=== PATIENT | male | born 1980 | race Caucasian/White ===

== ENCOUNTER 2019-12-17 16:36 | Inpatient (IN) | payer OTHER ==
--- NOTE | 2019-12-17 18:58 | BHS.RME ---
Substance Use & Tx History - Last Treatment Where was last treatment: Detox COWS - Scale Resting Pulse: 2= [place] 101-120 Sweatin=Flushed/Facial Moisture Restless Observation: 0= Sits Still Pupil Size: 1= Pupils >than Normal Bone or Joint Aches: 2= Severe Diffuse Aches Runny Nose/ Eye Tearin= Runny Nose/Eyes GI Upset > 30mins: 2= Nausea/Diarrhea (nausea, no diarrhea) Tremor Observation: 2= Slight Tremor Visible Yawning Observation: 1= 1-2x During Session Anxiety or Irritability: 2=Irritable/Anxious Goose Flesh Skin: 0=Smooth Skin COWS Score: 16 CIWA Nausea/Vomitin Muscle Tremors: 3 Anxiety: 4-Mod. Anxious/Guarded Agitation: 4-Moderately Restless Paroxysmal Sweats: 2 Orientation: 0-Oriented Tacttile Disturbances: 0-None Auditory Disturbances: 0-None Visual Disturbances: 0-None Headache: 3-Moderate CIWA-Ar Total Score: 18
[2019-12-17 19:31] VITALS: BMI 18.1
--- NOTE | 2019-12-17 20:26 | HP ---
COWS - Scale Resting Pulse: 2= [place] 101-120 Sweatin= Chills/Flushing Restless Observation: 1= Difficult to Sit Still Pupil Size: 0= Normal to Room Light Bone or Joint Aches: 2= Severe Diffuse Aches Runny Nose/ Eye Tearin= Runny Nose/Eyes GI Upset > 30mins: 2= Nausea/Diarrhea (nausea, no diarrhea) Tremor Observation: 2= Slight Tremor Visible Yawning Observation: 0= None Anxiety or Irritability: 2=Irritable/Anxious Goose Flesh Skin: 0=Smooth Skin COWS Score: 14 CIWA Score Nausea/Vomitin Muscle Tremors: 3 Anxiety: 3 Agitation: 3 Paroxysmal Sweats: 2 Orientation: 0-Oriented Tacttile Disturbances: 0-None Auditory Disturbances: 0-None Visual Disturbances: 0-None Headache: 0-None Present CIWA-Ar Total Score: 13 - Admission Criteria OASAS Guidelines: Admission for Medically Managed Detox: Requires at least one of the followin. CIWA greater than 12 2. Seizures within the past 24 hours 3. Delirium tremens within the past 24 hours 4. Hallucinations within the past 24 hours 5. Acute intervention needed for co occurring medical disorder 6. Acute intervention needed for co occurring psychiatric disorder 7. Severe withdrawal that cannot be handled at a lower level of care (continued vomiting, continued diarrhea, abnormal vital signs) requiring intravenous medication and/or fluids 8. Admitting History and Physical - Smoking History Smoking history: Current every day smoker Have you smoked in the past 12 months: Yes Aproximately how many cigarettes per day: 20 Admission ROS [facility] Allergies/Adverse Reactions: Allergies Allergy/AdvReac Type Severity Reaction Status Date / Time No Known Allergies Allergy Verified 12/17/19 19:25 History of Present Illness: pt here requesting detox from heroin and benzo use , reports xanax 3-4 /day since 1 yr ago , etoh 4 x 24 elida/day , heroin 3 bundles/day IV use in [facility] , OD " a long time ago " , denies abscess cocaine : " not that much " via inhalation amphetamine - denies fentanyl - denies methadone - denies recent detox , claims most recent detox 2 years ago @ [facility] tobacco : 1 ppd denies other illicits pmhx : denies PSHX : denies PSych : denies Exam Limitations: Clinical Condition - Review of Systems Constitutional: No Symptoms Reported, Unintentional Wgt. Loss EENT: reports: See HPI, Nose Congestion Respiratory: reports: No Symptoms reported Cardiac: reports: No Symptoms Reported GI: reports: See HPI, Nausea, Poor Appetite, Abdominal cramping : reports: No Symptoms Reported Musculoskeletal: reports: Muscle Pain Integumentary: reports: See HPI Neuro: reports: See HPI Endocrine: reports: No Symptoms Reported Hematology: reports: No Symptoms Reported Psychiatric: reports: Orientated x3, Agitated, Anxious Patient History - Patient Medical History Hx Asthma: No Hx Cardiac Disorders: No Hx Diabetes: No Hx Gastrointestinal Disorders: No Hx Sexually Transmitted Disorders: No Hx Renal Disease (ESRD): No - Patient Surgical History Past Surgical History: No - PPD History Documented Results: Negative w/o proof - Smoking Cessation Smoking history: Current every day smoker Have you smoked in the past 12 months: Yes Aproximately how many cigarettes per day: 20 Hx Chewing Tobacco Use: No Initiated information on smoking cessation: Yes 'Breaking Loose' booklet given: 12/17/19 - Substances abused Alcohol Substance route: Oral Frequency: Daily Amount used: 4 LOkOS, 1 PINT OF VODKA not daily Age of first use: 15 Date of last use: 12/17/19 Heroin Substance route: Injection Frequency: Daily Amount used: 3 BUNDLES Age of first use: 15 Date of last use: 12/17/19 Alprazolam (Xanax) Substance route: Oral Frequency: Daily Amount used: 3 STICKS 2 MG EACH Age of first use: 39 Date of last use: 12/17/19 Admission Physical Exam S - Vital Signs Vital Signs: Vital Signs - 24 hr 12/17/19 19:26 Temperature 98.7 F Pulse Rate 105 H Respiratory 18 Rate Blood Pressure 147/88 - Physical General Appearance: Yes: Disheveled, Moderate Distress, Anxious HEENTM: Yes: EOMI, Hearing grossly Normal, Normocephalic, Normal Voice, Nasal Congestion Respiratory: Yes: Chest Non-Tender, Lungs Clear, Normal Breath Sounds, No Respiratory Distress, No Accessory Muscle Use Neck: Yes: No masses,lesions,Nodules, Trachea in good position Cardiology: Yes: Regular Rhythm, Regular Rate, S1, S2 Abdominal: Yes: Normal Bowel Sounds, Non Tender, Soft Back: Yes: Normal Inspection Musculoskeletal: Yes: Gait Steady Extremities: Yes: Normal Capillary Refill, Normal Inspection, Normal Range of Motion, Non-Tender Neurological: Yes: Alert, Motor Strength 5/5, Normal Mood/Affect Integumentary: Yes: Warm, Track [place] - Diagnostic (1) Opioid dependence Current Visit: Yes Status: Chronic Qualifiers: Substance use status: uncomplicated Qualified Code(s): F11.20 - Opioid dependence, uncomplicated (2) Sedative, hypnotic or anxiolytic abuse Current Visit: Yes Status: Chronic (3) Cocaine abuse Current Visit: Yes Status: Chronic (4) Nicotine dependence Current Visit: Yes Status: Chronic Qualifiers: Nicotine product type: cigarettes (5) Alcohol dependence Current Visit: Yes Status: Chronic Qualifiers: Substance use status: uncomplicated Qualified Code(s): F10.20 - Alcohol dependence, uncomplicated Breathalyzer - Breathalyzer Breathalyzer: 0 Urine Drug Screen - Test Device Lot number: [id number] Expiration date: 09/21/21 - Control Is test valid?: Yes - Results Drug screen NEGATIVE: No Urine drug screen results: IVAN-Cocaine, MET-Methamphetamine, AMP-Amphetamines, FEN-Fentanyl, MOP-Opiates, MTD-Methadone, BZO-Benzodiazepines Inpatient Rehab Admission - Rehab Decision to Admit Inpatient rehab admission?: No
[2019-12-17] MEDS ORDERED: MAGNESIUM HYDROX 2400MG/30ML ORAL SUSPENSION 30 ML CUP PO PRN (20:34)
[2019-12-17] MEDS ORDERED: MENTHOL/PHENOL 1 EACH UD MM PRN (20:34)
[2019-12-17] MEDS ORDERED: hydrOXYzine PAMOATE 25 MG CAPSULE (FP) PO PRN (20:34)
[2019-12-17] MEDS ORDERED: MAGNESIUM CITRATE 300 ML BOTTLE PO PRN (20:34)
[2019-12-17] MEDS ORDERED: ACETAMINOPHEN 325 MG TABLET (FP) PO PRN ×2 (20:34)
[2019-12-17] MEDS ORDERED: MAG HYDROX/AL HYDROX/SIMETH 30 ML UNIT-DOSE CUP PO PRN (20:34)
[2019-12-17] MEDS ORDERED: BISMUTH SUBSALICYLATE 524 MG/30 ML UD PO PRN (20:34)
[2019-12-17] MEDS ORDERED: METHADONE HCL 10 MG TABLET (FOR DETOX USE ONLY) PO ONE (21:45)
[2019-12-17] MEDS ORDERED: MELATONIN 5 MG TABLETS PO PRN (22:00)
[2019-12-17] MEDS: diazePAM 5 MG TABLET PO SCH (22:17)
[2019-12-17] MEDS: THIAMINE HCL 100 MG TABLET (FP) PO SCH (22:19)
[2019-12-18] MEDS: diazePAM 5 MG TABLET PO SCH ×3 (05:27→22:11)
--- NOTE | 2019-12-18 08:20 | CONSULT ---
[facility] Psychiatric Consult - Data Date of interview: 12/18/19 Admission source: [facility] Identifying data: Mr Ayala is a 39 years old single male, unemployed receiving public assistance, homeless seeking detox treatment for alcohol, opioid, cocaine and benzodiazepine Substance Abuse History: Reports history of alcohol, heroin, cocaine and xanax use. Refer to addiction counselor's summary for further information Medical History: Unremarkable Psychiatric History: Reports that his only psychiatric treatment occured 7 years ago when he saw a private psychiatrist in [facility] due to depression. He said that he was prescribed Lexapro which he took for 1.5 year. He claims that medication was not having an effect anymore so he stopped taking it. Denies previous psychiatric hospitalization or suicidal attempt. At present, denies experiencing depressive symptoms, S/H ideations. However, reports feeling mildly anxious and sleeping poorly. 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 winder that Melatonin has no effect on him and requests stronger medication Physical/Sexual Abuse/Trauma History: Denies history of abuse as a child or DV relationship as an adult Mental Status Exam - Mental Status Exam Alert and Oriented to: Place, Person Cognitive Function: Fair Patient Appearance: Disheveled Mood: Anxious Affect: Appropriate Patient Behavior: Cooperative Speech Pattern: Clear Voice Loudness: Normal Thought Process: Intact, Goal Oriented Thought Disorder: Not Present Hallucinations: Denies Suicidal Ideation: Denies Homicidal Ideation: Denies Insight/Judgement: Poor Muscle strength/Tone: Normal Gait/Station: Normal Psychiatric Findings - Problem List ([place] 1, 2,3) (1) Depressive disorder Current Visit: Yes Status: Chronic (2) MDD (major depressive disorder) Current Visit: Yes Status: Ruled-out (3) Substance induced mood disorder Current Visit: Yes Status: Ruled-out (4) Substance-induced anxiety disorder Current Visit: Yes Status: Acute (5) Substance-induced sleep disorder Current Visit: Yes Status: Acute (6) Uncomplicated alcohol dependence Current Visit: Yes Status: Acute (7) Uncomplicated opioid dependence Current Visit: Yes Status: Acute (8) Sedative, hypnotic or anxiolytic dependence, uncomplicated Current Visit: Yes Status: Acute (9) Cocaine abuse Current Visit: Yes Status: Acute (10) Nicotine dependence Current Visit: Yes Status: Chronic Qualifiers: Nicotine product type: cigarettes - Initial Treatment Plan Initial Treatment Plan: 1) Start Belsomra 10 mg po HS prn for insomnia. 2) Continue inpatient detoxification
[2019-12-18] MEDS ORDERED: METHADONE HCL 5 MG TABLET (FOR DETOX USE ONLY) ONE (09:17)
[2019-12-18] MEDS ORDERED: METHADONE HCL 10 MG TABLET (FOR DETOX USE ONLY) ONE (09:17)
[2019-12-18] MEDS ORDERED: METHADONE (DETOX) 20 MG, METHADONE (DETOX) 5 MG PO ONE (10:00)
[2019-12-18] MEDS: PRENATAL VITAMINS W/ FOLIC ACID TABLET (FP) PO SCH (10:28)
[2019-12-18] MEDS: diazePAM 5 MG TABLET PO PRN (10:30)
[2019-12-18] MEDS: NICOTINE POLACRILEX 2 MG GUM BUC PRN ×3 (10:44→22:14)
[2019-12-18] MEDS: NICOTINE 21 MG/24 HOURS TOPICAL PATCH TD SCH (10:44)
[2019-12-18 10:55] LABS: HEMATOCRIT 45.9 % (35.4-49); HEMOGLOBIN 15.6 GM/dL (11.7-16.9); MEAN PLT VOLUME 8.8 fl (7.5-11.1); PLATELET COUNT 267 K/MM3 (134-434); RBC 4.59 M/mm3 (4.00-5.60); RDW 12.9 % (11.9-15.9); WHITE BLOOD COUNT 11.2 K/mm3 (4.0-10.0)
--- NOTE | 2019-12-18 11:21 | PN ---
S CIWA - CIWA Score Nausea/Vomitin Muscle Tremors: 2 Anxiety: 2 Agitation: 2 Paroxysmal Sweats: No Perspiration Orientation: 0-Oriented Tacttile Disturbances: 1-Very Mild Itch/Numbness Auditory Disturbances: 0-None Visual Disturbances: 0-None Headache: 1-Very Mild CIWA-Ar Total Score: 10 BHS COWS - Scale Resting Pulse: 1= MD 81-100 Sweatin= No chills or Flushing Restless Observation: 1= Difficult to Sit Still Pupil Size: 1= Pupils >than Normal Bone or Joint Aches: 1= Mild Discomfort Runny Nose/ Eye Tearin= Nasal Congestion GI Upset > 30mins: 1= Stomach Cramp Tremor Observation of Outstretched Hands: 2= Slight Tremor Visible Yawning Observation: 1= 1-2x During Session Anxiety or Irritability: 2=Irritable/Anxious Goose Flesh Skin: 0=Smooth Skin COWS Score: 11 S Progress Note (SOAP) Subjective: alert,irritable,anxious,interrupted sleep,pain in the body and back,interupted sleep Objective: 12/18/19 11:19 Vital Signs Temperature 98.6 F 12/18/19 08:28 Pulse Rate 82 12/18/19 08:28 Respiratory Rate 18 12/18/19 08:28 Blood Pressure 137/85 12/18/19 08:28 O2 Sat by Pulse Oximetry (%) 12/18/19 11:20 labs pending Assessment: 12/18/19 11:21 withdrawal symptom Plan: continue detox,methadone and valium regimen
[2019-12-18 11:39] LABS: ALBUMIN 3.6 g/dl (3.4-5.0); BILIRUBIN,TOTAL 0.8 mg/dL (0.2-1); CALCIUM 9.6 mg/dL (8.5-10.1); CREATININE 0.8 mg/dL (0.55-1.3); POTASSIUM 4.5 mmol/L (3.5-5.1)
--- NOTE | 2019-12-18 16:50 | EKG ---
Test Reason : Blood Pressure : / mmHG Vent. Rate : 070 BPM Atrial Rate : 070 BPM P-R Int : 112 ms QRS Dur : 086 ms QT Int : 404 ms P-R-T Axes : 041 079 066 degrees QTc Int : 436 ms NORMAL SINUS RHYTHM NORMAL ECG Confirmed by MD AALIYAH, EIDTH ([id number]) on 12/18/2019 4:49:45 PM Referred By: STORE Confirmed By:EDITH FISCHER MD
[2019-12-18] MEDS: cloNIDine HCL 0.1 MG TABLET PO PRN (20:54)
[2019-12-18] MEDS: THIAMINE HCL 100 MG TABLET (FP) PO SCH (22:11)
[2019-12-18] MEDS: METHOCARBAMOL 500 MG TABLET PO PRN (22:12)
[2019-12-18] MEDS: SUVOREXANT 10 MG TABLET PO PRN (22:14)
[2019-12-19] MEDS: diazePAM 5 MG TABLET PO SCH ×2 (05:12→19:00)
[2019-12-19] MEDS: NICOTINE POLACRILEX 2 MG GUM BUC PRN ×5 (05:15→22:09)
[2019-12-19] MEDS: cloNIDine HCL 0.1 MG TABLET PO PRN ×3 (08:49→20:18)
[2019-12-19] MEDS: PRENATAL VITAMINS W/ FOLIC ACID TABLET (FP) PO SCH (09:31)
[2019-12-19] MEDS: METHOCARBAMOL 500 MG TABLET PO PRN ×3 (09:31→22:08)
[2019-12-19] MEDS: diazePAM 5 MG TABLET PO PRN ×3 (09:31→23:47)
--- NOTE | 2019-12-19 09:31 | PN ---
S CIWA - CIWA Score Nausea/Vomitin-Mild Nausea/No Vomiting Muscle Tremors: 2 Anxiety: 2 Agitation: 2 Paroxysmal Sweats: No Perspiration Orientation: 0-Oriented Tacttile Disturbances: 1-Very Mild Itch/Numbness Auditory Disturbances: 0-None Visual Disturbances: 0-None Headache: 2-Mild CIWA-Ar Total Score: 10 BHS COWS - Scale Resting Pulse: 0= [place] 80 or Below Sweatin= No chills or Flushing Restless Observation: 1= Difficult to Sit Still Pupil Size: 1= Pupils >than Normal Bone or Joint Aches: 1= Mild Discomfort Runny Nose/ Eye Tearin= Nasal Congestion GI Upset > 30mins: 2= Nausea/Diarrhea Tremor Observation of Outstretched Hands: 2= Slight Tremor Visible Yawning Observation: 1= 1-2x During Session Anxiety or Irritability: 2=Irritable/Anxious Goose Flesh Skin: 0=Smooth Skin COWS Score: 11 S Progress Note (SOAP) Subjective: alert,irritable,anxious,interrupted sleep,pain in the body,back,nausea Objective: 12/19/19 09:29 Vital Signs Temperature 97.7 F 12/19/19 05:09 Pulse Rate 75 12/19/19 05:09 Respiratory Rate 18 12/19/19 05:09 Blood Pressure 122/66 12/19/19 05:09 O2 Sat by Pulse Oximetry (%) Laboratory Last Values WBC 11.2 K/mm3 (4.0-10.0) H 12/18/19 08:00 RBC 4.59 M/mm3 (4.00-5.60) 12/18/19 08:00 Hgb 15.6 GM/dL (11.7-16.9) 12/18/19 08:00 Hct 45.9 % (35.4-49) 12/18/19 08:00 MCV 100.0 fl (80-96) H 12/18/19 08:00 MCH 34.0 pg (25.7-33.7) H 12/18/19 08:00 MCHC 34.0 g/dl (32.0-35.9) 12/18/19 08:00 RDW 12.9 % (11.9-15.9) 12/18/19 08:00 Plt Count 267 K/MM3 (134-434) 12/18/19 08:00 MPV 8.8 fl (7.5-11.1) 12/18/19 08:00 Sodium 139 mmol/L (136-145) 12/18/19 08:00 Potassium 4.5 mmol/L (3.5-5.1) 12/18/19 08:00 Chloride 103 mmol/L (98-107) 12/18/19 08:00 Carbon Dioxide 31 mmol/L (21-32) 12/18/19 08:00 Anion Gap 5 MMOL/L (8-16) L 12/18/19 08:00 BUN 16.0 mg/dL (7-18) 12/18/19 08:00 Creatinine 0.8 mg/dL (0.55-1.3) 12/18/19 08:00 Est GFR (CKD-EPI)AfAm 131.34 12/18/19 08:00 Est GFR (CKD-EPI)NonAf 113.32 12/18/19 08:00 Random Glucose 72 mg/dL (74-106) L 12/18/19 08:00 Calcium 9.6 mg/dL (8.5-10.1) 12/18/19 08:00 Total Bilirubin 0.8 mg/dL (0.2-1) 12/18/19 08:00 AST 27 U/L (15-37) 12/18/19 08:00 ALT 34 U/L (13-61) 12/18/19 08:00 Alkaline Phosphatase 109 U/L (45-117) 12/18/19 08:00 Total Protein 7.0 g/dl (6.4-8.2) 12/18/19 08:00 Albumin 3.6 g/dl (3.4-5.0) 12/18/19 08:00 RPR Titer Nonreactive (NONREACTIVE) 12/18/19 08:00 Assessment: 12/19/19 09:30 withdrawal symptom Plan: continue detox methadone and valium regimen,wbc 11,200,encourage fluid,glucose 72,will do re[eat cbc,fasting glucose in am
[2019-12-19] MEDS: NICOTINE 21 MG/24 HOURS TOPICAL PATCH TD SCH (09:32)
[2019-12-19] MEDS ORDERED: METHADONE HCL 10 MG TABLET (FOR DETOX USE ONLY) PO ONE (10:00)
--- NOTE | 2019-12-19 15:01 | PN ---
Natanael Progress Note Note: Patient approached in the hallway. Told senior technical writer what ever he wanted to see me for was taking care of
--- NOTE | 2019-12-19 15:30 | PN ---
[facility] Progress Note Note: Pt requesting Suboxone at discharge. Pt states he has been on this before and was not using illicits and stopped when his family told him being on MAT was not a good idea. Pt states that he will relapse if he goes home without any medication. d/w pt at length re precipitated withdrawal and to start using Suboxone at the lowest dose. Pt has a list of providers to see at discharge to get Suboxone- pt is waiting to get an appointment with a provider prior to discharge. Plan discussed with Dr. Evans. Pt given Suboxone #14- sent to [facility] pharmacy. Also sent Narcan kit
[2019-12-19] MEDS: BACITRACIN 0.9 GM PACKET TP SCH (22:08)
[2019-12-19] MEDS: THIAMINE HCL 100 MG TABLET (FP) PO SCH (22:08)
[2019-12-20] MEDS: SUVOREXANT 10 MG TABLET PO PRN ×2 (01:03→22:20)
[2019-12-20] MEDS: NICOTINE POLACRILEX 2 MG GUM BUC PRN ×5 (01:28→22:19)
[2019-12-20] MEDS ORDERED: diazePAM 5 MG TABLET PO ONE (06:00)
[2019-12-20] MEDS: diazePAM 5 MG TABLET PO PRN ×3 (08:08→18:47)
[2019-12-20] MEDS ORDERED: METHADONE HCL 5 MG TABLET (FOR DETOX USE ONLY) ONE (09:35)
[2019-12-20] MEDS ORDERED: METHADONE HCL 10 MG TABLET (FOR DETOX USE ONLY) ONE (09:35)
--- NOTE | 2019-12-20 09:43 | PN ---
[facility] CIWA - CIWA Score Nausea/Vomitin-Mild Nausea/No Vomiting Muscle Tremors: 2 Anxiety: 2 Agitation: 2 Paroxysmal Sweats: No Perspiration Orientation: 0-Oriented Tacttile Disturbances: 1-Very Mild Itch/Numbness Auditory Disturbances: 0-None Visual Disturbances: 0-None Headache: 1-Very Mild CIWA-Ar Total Score: 9 S COWS - Scale Resting Pulse: 0= [place] 80 or Below Sweatin= No chills or Flushing Restless Observation: 1= Difficult to Sit Still Pupil Size: 0= Normal to Room Light Bone or Joint Aches: 1= Mild Discomfort Runny Nose/ Eye Tearin= Nasal Congestion GI Upset > 30mins: 1= Stomach Cramp Tremor Observation of Outstretched Hands: 1= Tremor [place], Not Seen Yawning Observation: 1= 1-2x During Session Anxiety or Irritability: 1=Feels Anxious/Irritable Goose Flesh Skin: 0=Smooth Skin COWS Score: 7 [facility] Progress Note (SOAP) Subjective: alert,irritable,anxious,interrupted sleep,tremor,pain in the body Objective: 12/20/19 09:42 Vital Signs Temperature 97.9 F 12/20/19 06:38 Pulse Rate 62 12/20/19 06:38 Respiratory Rate 16 12/20/19 06:38 Blood Pressure 94/74 12/20/19 06:38 O2 Sat by Pulse Oximetry (%) Assessment: 12/20/19 09:42 withdrawal symptom Plan: continue detox methadone and valium regimen
[2019-12-20] MEDS: BACITRACIN 0.9 GM PACKET TP SCH ×2 (09:48→22:18)
[2019-12-20] MEDS: PRENATAL VITAMINS W/ FOLIC ACID TABLET (FP) PO SCH (09:48)
[2019-12-20] MEDS: NICOTINE 21 MG/24 HOURS TOPICAL PATCH TD SCH (09:51)
[2019-12-20] MEDS ORDERED: METHADONE (DETOX) 10 MG, METHADONE (DETOX) 5 MG PO ONE (10:00)
[2019-12-20] MEDS: THIAMINE HCL 100 MG TABLET (FP) PO SCH (22:18)
[2019-12-21] MEDS: NICOTINE POLACRILEX 2 MG GUM BUC PRN ×4 (05:32→22:23)
[2019-12-21] MEDS ORDERED: METHADONE HCL 10 MG TABLET (FOR DETOX USE ONLY) PO ONE (10:00)
[2019-12-21] MEDS: diazePAM 5 MG TABLET PO PRN ×2 (10:14→18:21)
[2019-12-21] MEDS: PRENATAL VITAMINS W/ FOLIC ACID TABLET (FP) PO SCH (10:14)
[2019-12-21] MEDS: NICOTINE 21 MG/24 HOURS TOPICAL PATCH TD SCH (10:14)
[2019-12-21] MEDS: BACITRACIN 0.9 GM PACKET TP SCH ×2 (10:14→22:22)
[2019-12-21] MEDS: METHOCARBAMOL 500 MG TABLET PO PRN (10:15)
--- NOTE | 2019-12-21 15:33 | PN ---
[facility] CIWA - CIWA Score Nausea/Vomitin-No Nausea/No Vomiting Muscle Tremors: None Anxiety: 4-Mod. Anxious/Guarded Agitation: 2 Paroxysmal Sweats: 3 Orientation: 0-Oriented Tacttile Disturbances: 1-Very Mild Itch/Numbness Auditory Disturbances: 0-None Visual Disturbances: 0-None Headache: 0-None Present CIWA-Ar Total Score: 10 S COWS - Scale Resting Pulse: 1= [place] 81-100 Sweatin= Chills/Flushing Restless Observation: 1= Difficult to Sit Still Pupil Size: 0= Normal to Room Light Bone or Joint Aches: 0= None Runny Nose/ Eye Tearin= None GI Upset > 30mins: 0= None Tremor Observation of Outstretched Hands: 0= None Yawning Observation: 1= 1-2x During Session Anxiety or Irritability: 2=Irritable/Anxious Goose Flesh Skin: 0=Smooth Skin COWS Score: 6 S Progress Note (SOAP) Subjective: Sweating, Anxious. Objective: PATIENT A & O X 3, OBSERVED AMBULATING ON DETOX UNIT UNASSISTED. IN NO ACUTE DISTRESS. PATIENT AFEBRILE. 12/21/19 15:32 Vital Signs Temperature 97.7 F 12/21/19 09:55 Pulse Rate 81 12/21/19 09:55 Respiratory Rate 18 12/21/19 09:55 Blood Pressure 127/63 12/21/19 09:55 O2 Sat by Pulse Oximetry (%) Laboratory Tests 12/18/19 12/18/19 12/18/19 08:00 08:00 08:00 WBC 11.2 H RBC 4.59 Hgb 15.6 Hct 45.9 MCV 100.0 H MCH 34.0 H MCHC 34.0 RDW 12.9 Plt Count 267 MPV 8.8 Sodium 139 Potassium 4.5 Chloride 103 Carbon Dioxide 31 Anion Gap 5 L BUN 16.0 Creatinine 0.8 Est GFR (CKD-EPI)AfAm 131.34 Est GFR (CKD-EPI)NonAf 113.32 Random Glucose 72 L Calcium 9.6 Total Bilirubin 0.8 AST 27 ALT 34 Alkaline Phosphatase 109 Total Protein 7.0 Albumin 3.6 RPR Titer Nonreactive LABS NOTED. ELEVATED WBC LEVEL (11.2) NOTED ON DETOX ADMISSION LABORATORY ASSESSMENT - PATIENT TO HAVE REPEAT CBC DRAWN. 12/21/19 15:34 Assessment: 12/21/19 15:35 WITHDRAWAL SYMPTOMS. LEUKOCYTOSIS. Plan: CONTINUE DETOX. INCREASE DAILY ORAL WATER INTAKE. PATIENT SCHEDULED FOR D/C FROM DETOX UNIT TOMORROW.
[2019-12-21] MEDS ORDERED: cloNIDine HCL 0.1 MG TABLET PO PRN (19:44)
[2019-12-21] MEDS ORDERED: diazePAM 5 MG TABLET PO PRN (20:00)
[2019-12-21] MEDS ORDERED: TRIMETHOBENZAMIDE HCL 200MG/2ML INJ IM PRN (21:05)
[2019-12-21] MEDS: SUVOREXANT 10 MG TABLET PO PRN (22:22)
[2019-12-21] MEDS: THIAMINE HCL 100 MG TABLET (FP) PO SCH (22:24)
[2019-12-21] MEDS: IBUPROFEN 400 MG TABLET (FP) PO PRN (23:09)
[2019-12-22] MEDS: IBUPROFEN 400 MG TABLET (FP) PO PRN (05:24)
[2019-12-22] MEDS ORDERED: METHADONE HCL 5 MG TABLET (FOR DETOX USE ONLY) PO ONE (06:00)
[2019-12-22] MEDS: NICOTINE POLACRILEX 2 MG GUM BUC PRN (06:24)
[2019-12-22 09:14] VITALS: BP 135/89; PULSE 88; TEMP 98.4
[2019-12-22] MEDS: BACITRACIN 0.9 GM PACKET TP SCH (11:01)
[2019-12-22] MEDS: NICOTINE 21 MG/24 HOURS TOPICAL PATCH TD SCH (11:01)
[2019-12-22] MEDS: PRENATAL VITAMINS W/ FOLIC ACID TABLET (FP) PO SCH (11:01)
--- NOTE | 2019-12-22 12:13 | DS ---
[facility] Discharge Summary Admission Date: 12/17/19 - History Present History: Alcohol Dependence, Opioid Dependence, Sedative Dependence Additional Comments: Patient completed detox successfully and discharged safely. Patient to follow up with PCP within 1 week. Pertinent Past History: Nicotine dependence Alcohol dependence Benzodiazepines dependence Opioid dependence - Physical Exam Results Vital Signs: Vital Signs Temperature 98.4 F 12/22/19 08:16 Pulse Rate 88 12/22/19 08:16 Respiratory Rate 17 12/22/19 08:16 Blood Pressure 135/89 12/22/19 08:16 O2 Sat by Pulse Oximetry (%) Elevated b/p: denies htn, most likely r/t anxiety/agitation. Pertinent Admission Physical Exam Findings: Withdrawal sxs Laboratory Tests 12/18/19 12/18/19 12/18/19 08:00 08:00 08:00 WBC 11.2 H RBC 4.59 Hgb 15.6 Hct 45.9 MCV 100.0 H MCH 34.0 H MCHC 34.0 RDW 12.9 Plt Count 267 MPV 8.8 Sodium 139 Potassium 4.5 Chloride 103 Carbon Dioxide 31 Anion Gap 5 L BUN 16.0 Creatinine 0.8 Est GFR (CKD-EPI)AfAm 131.34 Est GFR (CKD-EPI)NonAf 113.32 Random Glucose 72 L Calcium 9.6 Total Bilirubin 0.8 AST 27 ALT 34 Alkaline Phosphatase 109 Total Protein 7.0 Albumin 3.6 RPR Titer Nonreactive Labs reviewed: WBC 11.2 (high), instructed to follow up with PCP within 1 week for abnormal labs - Treatment Hospital Course: Detox Protocol Followed, Detoxed Safely, Responded well, Discharged Condition Good - Medication Discharge Medications: Ambulatory Orders Buprenorphine/Naloxone [Suboxone 8Mg/2Mg Sl Film -] 2 each SL DAILY #14 packet MDD 2 12/19/19 Naloxone HCl [Narcan] 4 mg NS PRN #1 spray 12/19/19 - Diagnosis (1) Leukocytosis Current Visit: Yes Status: Acute (2) Sedative, hypnotic or anxiolytic dependence, uncomplicated Current Visit: Yes Status: Acute (3) Uncomplicated alcohol dependence Current Visit: Yes Status: Acute (4) Uncomplicated opioid dependence Current Visit: Yes Status: Acute (5) Nicotine dependence Current Visit: Yes Status: Chronic Qualifiers: Nicotine product type: cigarettes (6) Elevated blood pressure reading without diagnosis of hypertension Current Visit: Yes Status: Acute - AMA Did Patient Leave Against Medical Advice: No (Instructed to follow up with PCP within 1 week)
== END 2019-12-22 09:23 | disposition home or self-care (01) | DRG 773 ==
LOC: YASAS 16:36 → Y6N 20:56
PROVIDERS: ADMIT Allergy & Immunology; ATTEND Allergy & Immunology
PROC: HZ2ZZZZ Detoxification Services for Substance Abuse Treatment (ICD-10-PCS; principal; 2019-12-17)
DX: F10.230 Alcohol dependence with withdrawal, uncomplicated (principal); F11.20 Opioid dependence, uncomplicated; F13.20 Sedative, hypnotic or anxiolytic dependence, uncomplicated; F14.20 Cocaine dependence, uncomplicated; F19.282 Other psychoactive substance dependence with psychoactive substance-induced sleep disorder; F19.280 Other psychoactive substance dependence with psychoactive substance-induced anxiety disorder; D72.829 Elevated white blood cell count, unspecified; R03.0 Elevated blood-pressure reading, without diagnosis of hypertension; Z59.0 Homelessness
CPT/HCPCS: 36415; 80053; 85027; 86593; 93005; 93010; J0735

== ENCOUNTER 2020-07-02 15:22 | Inpatient (IN) | payer OTHER ==
--- NOTE | 2020-07-02 15:44 | BHS.RME ---
Substance Use & Tx History - Substance Use History Heroin Substance amount: 3-4 bundles Frequency of use: Daily Substance route: Injection (ex: intravenous or skin popping) Date of Last Use: 07/02/20 Xanax Substance amount: 2 mg - 7 tabs Frequency of use: Daily Substance route: Oral Date of Last Use: 07/02/20 (started age 39) Nicotine Substance amount: 2 packs Frequency of use: Daily Substance route: Smoking Date of Last Use: 07/02/20 (started age 15) - Last Treatment Date of last treatment: 11/2019 Treatment type: Substance Use Disorder ([place]) Where was last treatment: Detox Physical/Psych/Mental Status - Behavior General Behavior: Increased activity (restlessness, agitation) Eye Contact: Normal - Cooperativeness Cooperativeness: Cooperative - Thinking Thought Processes: Tight, Logical, Goal Directed - Physical Health Problems Is patient presently having any pain?: No Does patient presently have any injuries (include location): No Does patient currently have a fever: No Is patient : No COWS - Scale Resting Pulse: 1= [place] 81-100 Sweatin=Flushed/Facial Moisture Restless Observation: 5= Unable to Sit Still Pupil Size: 2= Moderately Dilated Bone or Joint Aches: 2= Severe Diffuse Aches Runny Nose/ Eye Tearin= Runny Nose/Eyes GI Upset > 30mins: 1= Stomach Cramp Tremor Observation: 2= Slight Tremor Visible Yawning Observation: 2= >3x During Session Anxiety or Irritability: 2=Irritable/Anxious Goose Flesh Skin: 0=Smooth Skin COWS Score: 21 CIWA Nausea/Vomitin-Mild Nausea/No Vomiting Muscle Tremors: 3 Anxiety: 4-Mod. Anxious/Guarded Agitation: 6 Paroxysmal Sweats: 1-Minimal Palms Moist Orientation: 0-Oriented Tacttile Disturbances: 0-None Auditory Disturbances: 0-None Visual Disturbances: 0-None Headache: 1-Very Mild CIWA-Ar Total Score: 16
[2020-07-02 16:40] VITALS: BMI 21.2
--- NOTE | 2020-07-02 17:34 | HP ---
COWS - Scale Resting Pulse: 1= ID [id number] Sweatin=Flushed/Facial Moisture Restless Observation: 5= Unable to Sit Still Pupil Size: 2= Moderately Dilated Bone or Joint Aches: 2= Severe Diffuse Aches Runny Nose/ Eye Tearin= Runny Nose/Eyes GI Upset > 30mins: 1= Stomach Cramp Tremor Observation: 2= Slight Tremor Visible Yawning Observation: 2= >3x During Session Anxiety or Irritability: 2=Irritable/Anxious Goose Flesh Skin: 0=Smooth Skin COWS Score: 21 CIWA Score Nausea/Vomitin-Mild Nausea/No Vomiting Muscle Tremors: 3 Anxiety: 4-Mod. Anxious/Guarded Agitation: 6 Paroxysmal Sweats: 1-Minimal Palms Moist Orientation: 0-Oriented Tacttile Disturbances: 0-None Auditory Disturbances: 0-None Visual Disturbances: 0-None Headache: 1-Very Mild CIWA-Ar Total Score: 16 - Admission Criteria OASAS Guidelines: Admission for Medically Managed Detox: Requires at least one of the followin. CIWA greater than 12 2. Seizures within the past 24 hours 3. Delirium tremens within the past 24 hours 4. Hallucinations within the past 24 hours 5. Acute intervention needed for co occurring medical disorder 6. Acute intervention needed for co occurring psychiatric disorder 7. Severe withdrawal that cannot be handled at a lower level of care (continued vomiting, continued diarrhea, abnormal vital signs) requiring intravenous medication and/or fluids 8. Admitting History and Physical - Admission History of Present Illness: 40 y.o. M no significant PMHx presenting to [facility] for detox. Patient was examined in the room in no acute distress. Patient substance use consist of alcohol 7 cans of 4 elida, 1/2 pint vodka a day no seizures no recent blackouts, heroin 4 bags a day, no overdoses, xanax 7 2mg tabs a day, 2 packs of cigarettes a day. - Substance Use History Heroin Substance amount: 3-4 bundles Frequency of use: Daily Substance route: Injection (ex: intravenous or skin popping) Date of Last Use: 07/02/20 Xanax Substance amount: 2 mg - 7 tabs Frequency of use: Daily Substance route: Oral Date of Last Use: 07/02/20 (started age 39) Nicotine Substance amount: 2 packs Frequency of use: Daily Substance route: Smoking Date of Last Use: 07/02/20 (started age 15) - Last Treatment Date of last treatment: 11/2019 Treatment type: Substance Use Disorder ([place]) Where was last treatment: Detox History Source: Patient Limitations to Obtaining History: No Limitations - Past Medical History [employer]: No: Seizure Cardiovascular: No: HTN, Hyperlipdemia Pulmonary: No: COPD, Pneumonia Gastrointestinal: No: GI Bleed Hepatobiliary: No: Hepatitis A, Hepatitis B, Hepatitis C Infectious Disease: No: HIV, STD's, Tuberculosis Psych: No: Anxiety, Depression - Past Surgical History Additional Past Surgical History: chest tube for rib fracture L side - Smoking History Smoking history: Current every day smoker Have you smoked in the past 12 months: Yes Aproximately how many cigarettes per day: 20 - Alcohol/Substance Use History of Substance Use: reports: Heroin, Prescription - Social History Usual Living Arrangement: Yes: Other ADL: Independent 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 Allergies/Adverse Reactions: Allergies Allergy/AdvReac Type Severity Reaction Status Date / Time No Known Allergies Allergy Verified 12/17/19 19:25 History of Present Illness: 40 y.o. M no significant PMHx presenting to [facility] for detox. Patient was examined in the room in no acute distress. Patient substance use consist of alcohol 7 cans of 4 elida, 1/2 pint vodka a day no seizures no recent blackouts, heroin 4 bags a day, no overdoses, xanax 7 2mg tabs a day, 2 packs of cigarettes a day. - Substance Use History Heroin Substance amount: 3-4 bundles Frequency of use: Daily Substance route: Injection (ex: intravenous or skin popping) Date of Last Use: 07/02/20 Xanax Substance amount: 2 mg - 7 tabs Frequency of use: Daily Substance route: Oral Date of Last Use: 07/02/20 (started age 39) Nicotine Substance amount: 2 packs Frequency of use: Daily Substance route: Smoking Date of Last Use: 07/02/20 (started age 15) - Last Treatment Date of last treatment: 11/2019 Treatment type: Substance Use Disorder ([place]) Where was last treatment: Detox Exam Limitations: No Limitations - Ebola screening Have you traveled outside of the country in the last 21 days: No Have you had contact with anyone from an Ebola affected area: No Have you been sick,other than usual withdrawal symptoms: No Do you have a fever: No - Review of Systems Constitutional: No Symptoms Reported EENT: reports: No Symptoms Reported Respiratory: denies: Cough, Shortness of Breath Cardiac: denies: Chest Pain, Lightheadedness GI: denies: Constipated, Diarrhea, Nausea, Vomiting Musculoskeletal: reports: Muscle Pain, Muscle Weakness Neuro: reports: Headache. denies: Dizziness Hematology: denies: Easy Bleeding Psychiatric: reports: No Sypmtoms Reported, Judgement Intact, Mood/Affect Appropiate, Orientated x3 Patient History - Patient Medical History Hx Asthma: No Hx Cardiac Disorders: No Hx Diabetes: No Hx Gastrointestinal Disorders: No Hx Sexually Transmitted Disorders: No Hx Renal Disease (ESRD): No - Patient Surgical History Past Surgical History: No - PPD History Date: 12/19/19 - Smoking Cessation Smoking history: Current every day smoker Have you smoked in the past 12 months: Yes Aproximately how many cigarettes per day: 20 Hx Chewing Tobacco Use: No Initiated information on smoking cessation: Yes 'Breaking Loose' booklet given: 07/02/20 Admission Physical Exam S - Vital Signs Vital Signs: Vital Signs - 24 hr 07/02/20 16:39 Temperature 97.7 F Pulse Rate 104 H Respiratory 18 Rate Blood Pressure 124/77 - Physical General Appearance: Yes: Within Normal Limits, No Apparent Distress, Nourished, Appropriately Dressed Respiratory: Yes: Within Normal Limits, Lungs Clear, Normal Breath Sounds, No Respiratory Distress, No Accessory Muscle Use Cardiology: Yes: Within Normal Limits, Regular Rhythm, Regular Rate Abdominal: Yes: Within Normal Limits, Normal Bowel Sounds, Non Tender, Flat, Soft Back: Yes: Within Normal Limits, Normal Inspection. No: CVA Tenderness Musculoskeletal: Yes: Within Normal Limits, full range of Motion, Gait Steady Extremities: Yes: Within Normal Limits, Normal Inspection, Non-Tender. No: Swelling Neurological: Yes: Within Normal Limits, Fully Oriented, Alert, Normal Mood/Affect, Normal Response Integumentary: Yes: Within Normal Limits, Normal Color, Warm - Diagnostic (1) Sedative, hypnotic or anxiolytic dependence, uncomplicated Current Visit: No Status: Acute (2) Substance-induced anxiety disorder Current Visit: No Status: Acute (3) Uncomplicated opioid dependence Current Visit: No Status: Acute (4) Alcohol dependence Current Visit: No Status: Chronic Qualifiers: Substance use status: uncomplicated Qualified Code(s): F10.20 - Alcohol dependence, uncomplicated (5) Nicotine dependence Current Visit: No Status: Chronic Qualifiers: Nicotine product type: cigarettes (6) Opioid dependence Current Visit: No Status: Chronic Qualifiers: Substance use status: uncomplicated Qualified Code(s): F11.20 - Opioid dependence, uncomplicated (7) Sedative, hypnotic or anxiolytic abuse Current Visit: No Status: Chronic Cleared for Admission [facility] - Detox or Rehab [facility] Level of Care: Medically Managed Detox Regimen/Protocol: Methadone/Librium Breathalyzer - Breathalyzer Breathalyzer: 0 Vital Signs - Vital Signs Vital signs refused: No Temperature: 97.7 F Pulse Rate: 104 Respiratory Rate: 14 Blood Pressure: 124/77 - Height Height: 1.73 m - Weight Weight: 63.503 kg - BMI Body Mass Index (BMI): 21.2 Urine Drug Screen - Test Device Lot number: [id number] Expiration date: 05/26/22 - Control Is test valid?: Yes - Results Drug screen NEGATIVE: No Urine drug screen results: IVAN-Cocaine, FEN-Fentanyl, MOP-Opiates, MTD- Methadone, BZO-Benzodiazepines Inpatient Rehab Admission - Rehab Decision to Admit Inpatient rehab admission?: No
[2020-07-02] MEDS ORDERED: BISMUTH SUBSALICYLATE 524 MG/30 ML UD PO PRN (17:41)
[2020-07-02] MEDS ORDERED: MENTHOL/PHENOL 1 EACH UD MM PRN (17:41)
[2020-07-02] MEDS ORDERED: ONDANSETRON *ODT* 4 MG TABLET SL PRN (17:41)
[2020-07-02] MEDS ORDERED: MAGNESIUM HYDROX 2400MG/30ML ORAL SUSPENSION 30 ML CUP PO PRN (17:41)
[2020-07-02] MEDS ORDERED: MAGNESIUM CITRATE 300 ML BOTTLE PO PRN (17:41)
[2020-07-02] MEDS ORDERED: ACETAMINOPHEN 325 MG TABLET (FP) PO PRN ×2 (17:41)
[2020-07-02] MEDS ORDERED: chlordiazePOXIDE HCL 25 MG CAPSULE PO PRN (17:41)
[2020-07-02] MEDS ORDERED: IBUPROFEN 400 MG TABLET (FP) PO PRN (17:41)
[2020-07-02] MEDS ORDERED: MAG HYDROX/AL HYDROX/SIMETH 30 ML UNIT-DOSE CUP PO PRN (17:41)
[2020-07-02] MEDS ORDERED: hydrOXYzine PAMOATE 25 MG CAPSULE (FP) PO SCH (18:00)
[2020-07-02] MEDS ORDERED: METHADONE HCL 10 MG TABLET (FOR DETOX USE ONLY) PO ONE (18:45)
[2020-07-02] MEDS: diazePAM 5 MG TABLET PO PRN (19:10)
[2020-07-02] MEDS: NICOTINE POLACRILEX 4 MG GUM BUC PRN ×2 (19:13→22:56)
[2020-07-02] MEDS: diazePAM 5 MG TABLET PO SCH (22:41)
[2020-07-02] MEDS: MELATONIN 5 MG TABLETS PO SCH (22:42)
[2020-07-02] MEDS: THIAMINE HCL 100 MG TABLET (FP) PO SCH (22:42)
[2020-07-02] MEDS ORDERED: chlordiazePOXIDE HCL 25 MG CAPSULE PO SCH (23:00)
[2020-07-03] MEDS: diazePAM 5 MG TABLET PO SCH ×4 (05:36→23:30)
[2020-07-03] MEDS ORDERED: METHADONE HCL 10 MG TABLET (FOR DETOX USE ONLY) ONE (08:32)
[2020-07-03] MEDS ORDERED: METHADONE HCL 5 MG TABLET (FOR DETOX USE ONLY) ONE (08:32)
--- NOTE | 2020-07-03 08:38 | PN ---
Teaching Attending Note Name of Resident: Jaswinder Jiménez ATTENDING PHYSICIAN STATEMENT I saw and evaluated the patient. I reviewed the resident's note and discussed the case with the resident. I agree with the resident's findings and plan as documented. SUBJECTIVE: OBJECTIVE: ASSESSMENT AND Plan: Agree with resident's findings and plan for detox.
[2020-07-03] MEDS ORDERED: METHADONE (DETOX) 20 MG, METHADONE (DETOX) 5 MG PO ONE (10:00)
[2020-07-03] MEDS: NICOTINE 7 MG/24 HOURS TOPICAL PATCH TD SCH (10:04)
[2020-07-03] MEDS: PRENATAL VITAMINS W/ FOLIC ACID TABLET (FP) PO SCH (10:05)
--- NOTE | 2020-07-03 10:07 | PN ---
[facility] CIWA - CIWA Score Nausea/Vomitin-Mild Nausea/No Vomiting Muscle Tremors: 3 Anxiety: 2 Agitation: 3 Paroxysmal Sweats: 3 Orientation: 0-Oriented Tacttile Disturbances: 0-None Auditory Disturbances: 0-None Visual Disturbances: 0-None Headache: 0-None Present CIWA-Ar Total Score: 12 [facility] COWS - Scale Resting Pulse: 0= [place] 80 or Below Sweatin= Chills/Flushing Restless Observation: 1= Difficult to Sit Still Pupil Size: 0= Normal to Room Light Bone or Joint Aches: 1= Mild Discomfort Runny Nose/ Eye Tearin= Runny Nose/Eyes GI Upset > 30mins: 1= Stomach Cramp Tremor Observation of Outstretched Hands: 2= Slight Tremor Visible Yawning Observation: 2= >3x During Session Anxiety or Irritability: 2=Irritable/Anxious Goose Flesh Skin: 0=Smooth Skin COWS Score: 12 [facility] Progress Note (SOAP) Subjective: sweats shakes body aches interrupted sleep headache chills nausea Objective: 07/03/20 10:05 Vital Signs Temperature 97.1 F L 07/03/20 05:29 Pulse Rate 72 07/03/20 05:29 Respiratory Rate 20 07/03/20 05:29 Blood Pressure 134/84 07/03/20 05:29 O2 Sat by Pulse Oximetry (%) 98 07/03/20 05:29 labs noted aaox3 ambulating no acute distress Assessment: 07/03/20 10:07 withdrawal sx Plan: continue detox increase fluids pending labs
[2020-07-03 10:40] LABS: HEMATOCRIT 41.7 % (35.4-49); HEMOGLOBIN 14.2 GM/dL (11.7-16.9); MCH 34.9 pg (25.7-33.7); MCHC 33.9 g/dl (32.0-35.9); MEAN CELL VOLUME 102.9 fl (80-96); MEAN PLT VOLUME 8.8 fl (7.5-11.1); PLATELET COUNT 266 K/MM3 (134-434); RBC 4.05 M/mm3 (4.00-5.60); RDW 13.2 % (11.9-15.9); WHITE BLOOD COUNT 7.1 K/mm3 (4.0-10.0)
[2020-07-03 10:51] LABS: BILIRUBIN,TOTAL 0.3 mg/dL (0.2-1); BLOOD UREA NITROGEN 10.7 mg/dL (7-18); CALCIUM 8.8 mg/dL (8.5-10.1); CREATININE 0.9 mg/dL (0.55-1.3); POTASSIUM 4.6 mmol/L (3.5-5.1); TOT PROT 6.1 g/dl (6.4-8.2)
[2020-07-03] MEDS: diazePAM 5 MG TABLET PO PRN ×3 (12:26→20:53)
--- NOTE | 2020-07-03 13:01 | CONSULT ---
[facility] Psychiatric Consult - Data Date of interview: 07/03/20 Admission source: [facility] Identifying data: Patient is a 40 year old single male, without children, unemployed, domiciled, and is financially supported with food stamps. This is one of multiple admissions for patient. Patient admitted to for alcohol, benzodiazepines and opiate dependence. Substance Abuse History: Substance Use History. Heroin. Substance amount: 3-4 bundles. Frequency of use: Daily. Substance route: Injection (ex: intravenous or skin popping). Date of Last Use: 07/02/20. Xanax. Substance amount: 2 mg - 7 tabs. Frequency of use: Daily. Substance route: Oral. Date of Last Use: 07/02/20 (started age 39). Nicotine. Substance amount: 2 packs. Frequency of use: Daily. Substance route: Smoking. Date of Last Use: 07/02/20 (started age 15) Medical History: Unremarkable. Psychiatric History: Patient's first psychiatric contact was as child due to restlessness and behavior disturbances. He was diagnosed with ADHD and treated with Ritalin. His next psychiatric contact was approximately at 33 years of age after seeing a private psychiatrist for depression. He was prescribed lexapro and reports taking the medication for approximately two years. Mr. Ayala has not seen a psychiatrist since. No reported history of psychiatric hospitalizations and suicide attempt. At present patient reports difficulty sleeping. Physical/Sexual Abuse/Trauma History: denies. Mental Status Exam - Mental Status Exam Alert and Oriented to: Time, Place, Person Cognitive Function: Good Patient Appearance: Well Groomed Mood: Hopeful Affect: Mood Congruent Patient Behavior: Appropriate, Cooperative Speech Pattern: Appropriate Voice Loudness: Normal Thought Process: Goal Oriented Thought Disorder: Not Present Hallucinations: Denies Suicidal Ideation: Denies Homicidal Ideation: Denies Insight/Judgement: Poor Sleep: Poorly Appetite: Fair Muscle strength/Tone: Normal Gait/Station: Normal Psychiatric Findings - Problem List ([place] 1, 2,3) (1) Sedative, hypnotic or anxiolytic dependence, uncomplicated Current Visit: Yes Status: Acute (2) Substance-induced sleep disorder Current Visit: Yes Status: Acute (3) Uncomplicated alcohol dependence Current Visit: Yes Status: Acute (4) Opioid dependence Current Visit: Yes Status: Chronic Qualifiers: Substance use status: uncomplicated Qualified Code(s): F11.20 - Opioid dependence, uncomplicated (5) Sedative, hypnotic or anxiolytic abuse Current Visit: Yes Status: Chronic (6) Depressive disorder Current Visit: No Status: Chronic - Initial Treatment Plan Initial Treatment Plan: Psychoeducation provided. Detoxification in progress. Will order Belsomra 10mg HS PRN. Benefits and side effects discussed. Verbal consent given.
[2020-07-03] MEDS: METHOCARBAMOL 500 MG TABLET PO PRN ×2 (14:43→18:24)
[2020-07-03] MEDS: NICOTINE POLACRILEX 4 MG GUM BUC PRN ×3 (16:48→23:00)
[2020-07-03] MEDS: cloNIDine HCL 0.1 MG TABLET PO PRN (18:24)
[2020-07-03] MEDS: SUVOREXANT 10 MG TABLET PO PRN (22:59)
[2020-07-04] MEDS: MELATONIN 5 MG TABLETS PO SCH ×2 (00:30→22:12)
[2020-07-04] MEDS: THIAMINE HCL 100 MG TABLET (FP) PO SCH ×2 (00:30→22:10)
[2020-07-04] MEDS ORDERED: chlordiazePOXIDE HCL 25 MG CAPSULE PO SCH (05:00)
[2020-07-04] MEDS: diazePAM 5 MG TABLET PO SCH ×3 (05:30→22:10)
[2020-07-04] MEDS: NICOTINE POLACRILEX 4 MG GUM BUC PRN ×5 (05:31→17:48)
[2020-07-04] MEDS: METHOCARBAMOL 500 MG TABLET PO PRN ×3 (07:35→20:29)
[2020-07-04] MEDS: cloNIDine HCL 0.1 MG TABLET PO PRN ×3 (07:35→20:29)
[2020-07-04] MEDS ORDERED: METHADONE HCL 10 MG TABLET (FOR DETOX USE ONLY) PO ONE (10:00)
[2020-07-04] MEDS: PRENATAL VITAMINS W/ FOLIC ACID TABLET (FP) PO SCH (10:36)
[2020-07-04] MEDS: diazePAM 5 MG TABLET PO PRN ×2 (10:37→17:01)
[2020-07-04] MEDS: NICOTINE 7 MG/24 HOURS TOPICAL PATCH TD SCH (10:37)
--- NOTE | 2020-07-04 17:38 | PN ---
S CIWA - CIWA Score Nausea/Vomitin Muscle Tremors: None Anxiety: 2 Agitation: 2 Paroxysmal Sweats: 2 Orientation: 0-Oriented Tacttile Disturbances: 2-Mild Itch/Numbness/Burn Auditory Disturbances: 0-None Visual Disturbances: 1-Very Mild Sensitivity Headache: 0-None Present CIWA-Ar Total Score: 11 BHS COWS - Scale Resting Pulse: 1= [place] 81-100 Sweatin= Chills/Flushing Restless Observation: 1= Difficult to Sit Still Pupil Size: 0= Normal to Room Light Bone or Joint Aches: 1= Mild Discomfort Runny Nose/ Eye Tearin= None GI Upset > 30mins: 2= Nausea/Diarrhea Tremor Observation of Outstretched Hands: 2= Slight Tremor Visible Yawning Observation: 1= 1-2x During Session Anxiety or Irritability: 2=Irritable/Anxious Goose Flesh Skin: 0=Smooth Skin COWS Score: 11 S Progress Note (SOAP) Subjective: Anxious, Sweating, Nausea (mild), Chills, Body Aches. Objective: Patient A & O X 3, Observed Ambulating on Detox Unit Unassisted. In No Acute Distress. 07/04/20 17:36 Vital Signs Temperature 98.6 F 07/04/20 12:46 Pulse Rate 87 07/04/20 12:46 Respiratory Rate 18 07/04/20 12:46 Blood Pressure 150/74 07/04/20 12:46 O2 Sat by Pulse Oximetry (%) 100 07/04/20 12:46 Laboratory Tests 07/02/20 07/03/20 07/03/20 18:30 08:10 08:10 WBC 7.1 RBC 4.05 Hgb 14.2 Hct 41.7 MCV 102.9 H MCH 34.9 H MCHC 33.9 RDW 13.2 Plt Count 266 MPV 8.8 Sodium Potassium Chloride Carbon Dioxide Anion Gap BUN Creatinine Est GFR (CKD-EPI)AfAm Est GFR (CKD-EPI)NonAf Random Glucose Calcium Total Bilirubin AST ALT Alkaline Phosphatase Total Protein Albumin Syphilis Serology Non-reactive COVID-19 ([facility]) Not detected 07/03/20 08:10 WBC RBC Hgb Hct MCV MCH MCHC RDW Plt Count MPV Sodium 140 Potassium 4.6 Chloride 107 Carbon Dioxide 31 Anion Gap 3 L BUN 10.7 Creatinine 0.9 Est GFR (CKD-EPI)AfAm 124.26 Est GFR (CKD-EPI)NonAf 107.21 Random Glucose 92 Calcium 8.8 Total Bilirubin 0.3 AST 22 ALT 23 Alkaline Phosphatase 81 Total Protein 6.1 L Albumin 3.0 L Syphilis Serology COVID-19 ([facility]) Lab Results noted. Assessment: 07/04/20 17:37 WITHDRAWAL SYMPTOMS. Plan: Continue Detox. Increase Daily Oral Water Intake.
[2020-07-04] MEDS: SUVOREXANT 10 MG TABLET PO PRN (22:11)
[2020-07-05] MEDS ORDERED: chlordiazePOXIDE HCL 10 MG CAPSULE PO PRN
[2020-07-05] MEDS ORDERED: chlordiazePOXIDE HCL 10 MG CAPSULE PO SCH (05:00)
[2020-07-05] MEDS: diazePAM 5 MG TABLET PO SCH ×2 (05:51→17:20)
[2020-07-05] MEDS: NICOTINE POLACRILEX 4 MG GUM BUC PRN ×6 (05:52→23:25)
[2020-07-05] MEDS: METHOCARBAMOL 500 MG TABLET PO PRN ×3 (05:54→21:08)
[2020-07-05] MEDS ORDERED: METHADONE HCL 10 MG TABLET (FOR DETOX USE ONLY) ONE (09:31)
[2020-07-05] MEDS ORDERED: METHADONE HCL 5 MG TABLET (FOR DETOX USE ONLY) ONE (09:31)
[2020-07-05] MEDS: PRENATAL VITAMINS W/ FOLIC ACID TABLET (FP) PO SCH (09:44)
[2020-07-05] MEDS: diazePAM 5 MG TABLET PO PRN ×2 (09:45→14:01)
[2020-07-05] MEDS: NICOTINE 7 MG/24 HOURS TOPICAL PATCH TD SCH (09:47)
[2020-07-05] MEDS ORDERED: METHADONE (DETOX) 10 MG, METHADONE (DETOX) 5 MG PO ONE (10:00)
[2020-07-05] MEDS: cloNIDine HCL 0.1 MG TABLET PO PRN (18:36)
--- NOTE | 2020-07-05 18:39 | PN ---
[facility] CIWA - CIWA Score Nausea/Vomitin-No Nausea/No Vomiting Muscle Tremors: 2 Anxiety: 2 Agitation: 2 Paroxysmal Sweats: 2 Orientation: 0-Oriented Tacttile Disturbances: 0-None Auditory Disturbances: 0-None Visual Disturbances: 0-None Headache: 0-None Present CIWA-Ar Total Score: 8 S COWS - Scale Resting Pulse: 0= [place] 80 or Below Sweatin= Chills/Flushing Restless Observation: 0= Sits Still Pupil Size: 0= Normal to Room Light Bone or Joint Aches: 1= Mild Discomfort Runny Nose/ Eye Tearin= Nasal Congestion GI Upset > 30mins: 1= Stomach Cramp Tremor Observation of Outstretched Hands: 2= Slight Tremor Visible Yawning Observation: 0= None Anxiety or Irritability: 2=Irritable/Anxious Goose Flesh Skin: 0=Smooth Skin COWS Score: 8 [facility] Progress Note (SOAP) Subjective: Restless, tremor, sweating, interrupted sleep Objective: 07/05/20 18:37 Last Vital Signs Temp Pulse Resp BP Pulse Ox 98.4 F 78 18 139/91 97 07/05/20 12:53 07/05/20 18:34 07/05/20 18:34 07/05/20 18:34 07/05/20 12:53 Elevated b/p noted Laboratory Tests 07/02/20 07/03/20 07/03/20 18:30 08:10 08:10 WBC 7.1 RBC 4.05 Hgb 14.2 Hct 41.7 MCV 102.9 H MCH 34.9 H MCHC 33.9 RDW 13.2 Plt Count 266 MPV 8.8 Sodium Potassium Chloride Carbon Dioxide Anion Gap BUN Creatinine Est GFR (CKD-EPI)AfAm Est GFR (CKD-EPI)NonAf Random Glucose Calcium Total Bilirubin AST ALT Alkaline Phosphatase Total Protein Albumin Syphilis Serology Non-reactive COVID-19 ([facility]) Not detected 07/03/20 08:10 WBC RBC Hgb Hct MCV MCH MCHC RDW Plt Count MPV Sodium 140 Potassium 4.6 Chloride 107 Carbon Dioxide 31 Anion Gap 3 L BUN 10.7 Creatinine 0.9 Est GFR (CKD-EPI)AfAm 124.26 Est GFR (CKD-EPI)NonAf 107.21 Random Glucose 92 Calcium 8.8 Total Bilirubin 0.3 AST 22 ALT 23 Alkaline Phosphatase 81 Total Protein 6.1 L Albumin 3.0 L Syphilis Serology COVID-19 ([facility]) Labs reviewed Assessment: 07/05/20 18:38 Withdrawal sxs Elevated b/p noted Plan: Continue detox Encourage PO water intake Elevated b/p: most likely r/t withdrawal/mood, monitor b/p, start clonidine prn
[2020-07-05] MEDS: THIAMINE HCL 100 MG TABLET (FP) PO SCH (21:08)
[2020-07-05] MEDS: SUVOREXANT 10 MG TABLET PO PRN (21:08)
[2020-07-05] MEDS: MELATONIN 5 MG TABLETS PO SCH (21:08)
[2020-07-06] MEDS: NICOTINE POLACRILEX 4 MG GUM BUC PRN ×6 (03:43→22:15)
[2020-07-06] MEDS ORDERED: chlordiazePOXIDE HCL 10 MG CAPSULE PO SCH (05:00)
[2020-07-06] MEDS: cloNIDine HCL 0.1 MG TABLET PO PRN (05:08)
[2020-07-06] MEDS ORDERED: diazePAM 5 MG TABLET PO ONE (06:00)
[2020-07-06] MEDS ORDERED: METHADONE HCL 10 MG TABLET (FOR DETOX USE ONLY) PO ONE (10:00)
[2020-07-06] MEDS: NICOTINE 7 MG/24 HOURS TOPICAL PATCH TD SCH (10:04)
[2020-07-06] MEDS: PRENATAL VITAMINS W/ FOLIC ACID TABLET (FP) PO SCH (10:05)
--- NOTE | 2020-07-06 10:44 | PN ---
[facility] CIWA - CIWA Score Nausea/Vomitin-No Nausea/No Vomiting Muscle Tremors: 3 Anxiety: 2 Agitation: 2 Paroxysmal Sweats: 1-Minimal Palms Moist Orientation: 0-Oriented Tacttile Disturbances: 0-None Auditory Disturbances: 0-None Visual Disturbances: 0-None Headache: 0-None Present CIWA-Ar Total Score: 8 S COWS - Scale Resting Pulse: 2= [place] 101-120 Sweatin= Chills/Flushing Restless Observation: 0= Sits Still Pupil Size: 0= Normal to Room Light Bone or Joint Aches: 1= Mild Discomfort Runny Nose/ Eye Tearin= None GI Upset > 30mins: 0= None Tremor Observation of Outstretched Hands: 0= None Yawning Observation: 0= None Anxiety or Irritability: 2=Irritable/Anxious Goose Flesh Skin: 0=Smooth Skin COWS Score: 6 S Progress Note (SOAP) Subjective: sweats anxiety restless interrupted sleep Objective: 07/06/20 10:42 Vital Signs Temperature 97.8 F 07/06/20 04:55 Pulse Rate 80 07/06/20 04:55 Respiratory Rate 20 07/06/20 04:55 Blood Pressure 128/70 07/06/20 04:55 O2 Sat by Pulse Oximetry (%) 99 07/06/20 04:55 Laboratory Tests 07/02/20 07/03/20 07/03/20 18:30 08:10 08:10 WBC 7.1 RBC 4.05 Hgb 14.2 Hct 41.7 MCV 102.9 H MCH 34.9 H MCHC 33.9 RDW 13.2 Plt Count 266 MPV 8.8 Sodium Potassium Chloride Carbon Dioxide Anion Gap BUN Creatinine Est GFR (CKD-EPI)AfAm Est GFR (CKD-EPI)NonAf Random Glucose Calcium Total Bilirubin AST ALT Alkaline Phosphatase Total Protein Albumin Syphilis Serology Non-reactive COVID-19 ([facility]) Not detected 07/03/20 08:10 WBC RBC Hgb Hct MCV MCH MCHC RDW Plt Count MPV Sodium 140 Potassium 4.6 Chloride 107 Carbon Dioxide 31 Anion Gap 3 L BUN 10.7 Creatinine 0.9 Est GFR (CKD-EPI)AfAm 124.26 Est GFR (CKD-EPI)NonAf 107.21 Random Glucose 92 Calcium 8.8 Total Bilirubin 0.3 AST 22 ALT 23 Alkaline Phosphatase 81 Total Protein 6.1 L Albumin 3.0 L Syphilis Serology COVID-19 ([facility]) aaox3 sitting in bed no acute distress Assessment: 07/06/20 10:49 withdrawals Plan: continue detox valium 5mg prn x one day clonidine 0.1mg prn d/c in am
[2020-07-06] MEDS: diazePAM 5 MG TABLET PO PRN ×3 (12:07→22:13)
--- NOTE | 2020-07-06 19:15 | PN ---
S Progress Note Note: Discussion w/ counselor indicated that patient has to leave by 7 am to get to enrollment appointment at [facility].
[2020-07-06] MEDS: METHOCARBAMOL 500 MG TABLET PO PRN (22:12)
[2020-07-06] MEDS: MELATONIN 5 MG TABLETS PO SCH (22:15)
[2020-07-06] MEDS: THIAMINE HCL 100 MG TABLET (FP) PO SCH (22:15)
[2020-07-07] MEDS ORDERED: chlordiazePOXIDE HCL 10 MG CAPSULE PO ONE (05:00)
[2020-07-07] MEDS ORDERED: METHADONE HCL 5 MG TABLET (FOR DETOX USE ONLY) PO ONE (06:00)
[2020-07-07 06:18] VITALS: BP 129/84; PULSE 86; TEMP 97.8
--- NOTE | 2020-07-07 06:23 | DS ---
[facility] Detox Discharge Summary Admission Date: 07/02/20 - History Additional Comments: pt c/o difficulty sleeping, otherwise no complaints . Ambulating freely, AAO x 3 . Vital Signs - 24 hr 07/06/20 07/06/20 07/06/20 09:29 12:35 16:57 Temperature 98.4 F 98.0 F 97.3 F L Pulse Rate 119 H 76 73 Respiratory 16 20 18 Rate Blood Pressure 129/84 115/66 142/94 O2 Sat by Pulse 100 100 Oximetry (%) 07/06/20 07/07/20 20:50 06:17 Temperature 97.7 F 97.8 F Pulse Rate 75 86 Respiratory 18 18 Rate Blood Pressure 136/84 129/84 O2 Sat by Pulse 100 99 Oximetry (%) - Physical Exam Results Vital Signs: Vital Signs Temperature 97.8 F 07/07/20 06:17 Pulse Rate 86 07/07/20 06:17 Respiratory Rate 18 07/07/20 06:17 Blood Pressure 129/84 07/07/20 06:17 O2 Sat by Pulse Oximetry (%) 99 07/07/20 06:17 - Treatment Hospital Course: Detox Protocol Followed, Detoxed Safely, Discharged Condition Good - Medication Discharge Medications: Ambulatory Orders NK [No Known Home Medication] 07/02/20 - AMA Did Patient Leave Against Medical Advice: No
== END 2020-07-07 07:03 | disposition home or self-care (01) | DRG 773 ==
LOC: YASAS 15:22 → Y6N 18:22
PROVIDERS: ADMIT Allergy & Immunology; ATTEND Allergy & Immunology
PROC: HZ2ZZZZ Detoxification Services for Substance Abuse Treatment (ICD-10-PCS; principal; 2020-07-02)
DX: F10.230 Alcohol dependence with withdrawal, uncomplicated (principal); F11.23 Opioid dependence with withdrawal; F13.230 Sedative, hypnotic or anxiolytic dependence with withdrawal, uncomplicated; F17.210 Nicotine dependence, cigarettes, uncomplicated; F19.282 Other psychoactive substance dependence with psychoactive substance-induced sleep disorder; F19.280 Other psychoactive substance dependence with psychoactive substance-induced anxiety disorder; F32.9 Major depressive disorder, single episode, unspecified; R03.0 Elevated blood-pressure reading, without diagnosis of hypertension; Z88.8 Allergy status to other drugs, medicaments and biological substances; Z59.0 Homelessness
CPT/HCPCS: 36415; 80053; 85027; 86780; J0735; U0003

== ENCOUNTER 2021-03-04 14:43 | Inpatient (IN) | payer OTHER ==
[2021-03-04 18:30] VITALS: BMI 19.2
[2021-03-04] MEDS ORDERED: ACETAMINOPHEN 325 MG TABLET (FP) PO PRN ×2 (20:08)
[2021-03-04] MEDS ORDERED: MENTHOL/PHENOL 1 EACH UD MM PRN (20:08)
[2021-03-04] MEDS ORDERED: MAGNESIUM HYDROX 2400MG/30ML ORAL SUSPENSION 30 ML CUP PO PRN (20:08)
[2021-03-04] MEDS ORDERED: BISMUTH SUBSALICYLATE 524 MG/30 ML UD PO PRN (20:08)
[2021-03-04] MEDS ORDERED: ONDANSETRON *ODT* 4 MG TABLET SL PRN (20:08)
[2021-03-04] MEDS ORDERED: MAGNESIUM CITRATE 300 ML BOTTLE PO PRN (20:08)
[2021-03-04] MEDS ORDERED: MAG HYDROX/AL HYDROX/SIMETH 30 ML UNIT-DOSE CUP PO PRN (20:08)
[2021-03-04] MEDS ORDERED: TRIMETHOBENZAMIDE HCL 200MG/2ML INJ IM ONE ×2 (20:11→20:28)
[2021-03-04] MEDS ORDERED: MELATONIN 5 MG TABLETS PO SCH (22:00)
[2021-03-04] MEDS: diazePAM 5 MG TABLET PO SCH (23:00)
[2021-03-04] MEDS: THIAMINE HCL 100 MG TABLET (FP) PO SCH (23:01)
[2021-03-04] MEDS: IBUPROFEN 400 MG TABLET (FP) PO PRN (23:03)
[2021-03-04] MEDS: METHOCARBAMOL 500 MG TABLET PO PRN (23:03)
[2021-03-04] MEDS: NICOTINE POLACRILEX 2 MG GUM BUC PRN (23:05)
[2021-03-05] MEDS: diazePAM 5 MG TABLET PO PRN ×2 (03:53→14:12)
[2021-03-05] MEDS: METHOCARBAMOL 500 MG TABLET PO PRN ×2 (05:49→18:20)
[2021-03-05] MEDS: IBUPROFEN 400 MG TABLET (FP) PO PRN ×2 (05:50→18:21)
[2021-03-05] MEDS: diazePAM 5 MG TABLET PO SCH ×4 (07:17→22:37)
[2021-03-05] MEDS: METHADONE HCL 40 MG DISPERSABLE TABLET PO SCH (09:37)
[2021-03-05] MEDS: PRENATAL VITAMINS W/ FOLIC ACID TABLET (FP) PO SCH (09:38)
[2021-03-05] MEDS: CLOTRIMAZOLE 10 MG TROCHE PO SCH ×5 (09:41→22:38)
[2021-03-05] MEDS: NICOTINE 21 MG/24 HOURS TOPICAL PATCH TD SCH (10:39)
[2021-03-05 11:31] LABS: HEMATOCRIT 43.3 % (35.4-49); HEMOGLOBIN 15.1 GM/dL (11.7-16.9); MCH 36.2 pg (25.7-33.7); MCHC 34.9 g/dl (32.0-35.9); MEAN CELL VOLUME 103.7 fl (80-96); PLATELET COUNT 254 K/MM3 (134-434); RBC 4.18 M/mm3 (4.00-5.60); RDW 12.7 % (11.9-15.9); WHITE BLOOD COUNT 8.3 K/mm3 (4.0-10.0)
[2021-03-05 11:32] LABS: CALCIUM 9.3 mg/dL (8.5-10.1)
[2021-03-05 11:33] LABS: BLOOD UREA NITROGEN 9.3 mg/dL (7-18)
[2021-03-05 11:36] LABS: CREATININE 0.8 mg/dL (0.55-1.3)
[2021-03-05 11:37] LABS: BILIRUBIN,TOTAL 1.2 mg/dL (0.2-1); TOT PROT 7.5 g/dl (6.4-8.2)
[2021-03-05] MEDS ORDERED: cloNIDine HCL 0.1 MG TABLET PO ONE (11:48)
[2021-03-05 12:32] LABS: HIV INTERPRETATION NEGATIVE (NEGATIVE)
[2021-03-05] MEDS: NICOTINE POLACRILEX 2 MG GUM BUC PRN (18:22)
[2021-03-05] MEDS: THIAMINE HCL 100 MG TABLET (FP) PO SCH (22:37)
[2021-03-05] MEDS: SUVOREXANT 10 MG TABLET PO PRN (22:37)
[2021-03-06] MEDS: diazePAM 5 MG TABLET PO PRN ×3 (01:01→17:54)
[2021-03-06] MEDS: METHOCARBAMOL 500 MG TABLET PO PRN ×3 (05:12→22:25)
[2021-03-06] MEDS: IBUPROFEN 400 MG TABLET (FP) PO PRN ×3 (05:12→22:25)
[2021-03-06] MEDS: METHADONE HCL 40 MG DISPERSABLE TABLET PO SCH (05:13)
[2021-03-06] MEDS: diazePAM 5 MG TABLET PO SCH ×3 (06:40→22:24)
[2021-03-06] MEDS: CLOTRIMAZOLE 10 MG TROCHE PO SCH ×5 (07:06→22:24)
[2021-03-06] MEDS: NICOTINE 21 MG/24 HOURS TOPICAL PATCH TD SCH (10:44)
[2021-03-06] MEDS: PRENATAL VITAMINS W/ FOLIC ACID TABLET (FP) PO SCH (10:44)
[2021-03-06] MEDS: NICOTINE POLACRILEX 2 MG GUM BUC PRN ×4 (10:47→22:30)
[2021-03-06] MEDS: LIDOCAINE 5% TOPICAL PATCH TP SCH (14:28)
[2021-03-06] MEDS: THIAMINE HCL 100 MG TABLET (FP) PO SCH (22:24)
[2021-03-06] MEDS: LIDOCAINE PATCH REMOVAL MC SCH (22:25)
[2021-03-06] MEDS: SUVOREXANT 10 MG TABLET PO PRN (22:28)
[2021-03-07] MEDS: METHADONE HCL 40 MG DISPERSABLE TABLET PO SCH (06:00)
[2021-03-07] MEDS: diazePAM 5 MG TABLET PO SCH ×2 (06:01→17:40)
[2021-03-07] MEDS: CLOTRIMAZOLE 10 MG TROCHE PO SCH ×5 (06:02→21:46)
[2021-03-07] MEDS: NICOTINE POLACRILEX 2 MG GUM BUC PRN ×4 (06:03→19:47)
[2021-03-07] MEDS: IBUPROFEN 400 MG TABLET (FP) PO PRN ×2 (10:15→17:41)
[2021-03-07] MEDS: NICOTINE 21 MG/24 HOURS TOPICAL PATCH TD SCH (10:16)
[2021-03-07] MEDS: LIDOCAINE 5% TOPICAL PATCH TP SCH (10:16)
[2021-03-07] MEDS: PRENATAL VITAMINS W/ FOLIC ACID TABLET (FP) PO SCH (10:16)
[2021-03-07] MEDS: METHOCARBAMOL 500 MG TABLET PO PRN ×2 (10:16→19:47)
[2021-03-07] MEDS: diazePAM 5 MG TABLET PO PRN ×2 (10:17→14:24)
[2021-03-07 12:43] LABS: SGOT/AST 55 U/L (15-37); SGPT/ALT 43 U/L (13-61)
[2021-03-07] MEDS: SUVOREXANT 10 MG TABLET PO PRN (21:45)
[2021-03-07] MEDS: THIAMINE HCL 100 MG TABLET (FP) PO SCH (21:46)
[2021-03-07] MEDS: LIDOCAINE PATCH REMOVAL MC SCH (21:49)
[2021-03-08] MEDS: METHADONE HCL 40 MG DISPERSABLE TABLET PO SCH (05:58)
[2021-03-08] MEDS: CLOTRIMAZOLE 10 MG TROCHE PO SCH ×2 (05:59→09:12)
[2021-03-08] MEDS ORDERED: diazePAM 5 MG TABLET PO ONE (06:00)
[2021-03-08 06:10] LABS: SARS-CoV-2 NAA Not Detected (Not Detected)
[2021-03-08 08:54] VITALS: BP 146/92; PULSE 71; TEMP 97.5
[2021-03-08] MEDS: NICOTINE POLACRILEX 2 MG GUM BUC PRN (09:12)
[2021-03-08] MEDS: PRENATAL VITAMINS W/ FOLIC ACID TABLET (FP) PO SCH (09:12)
[2021-03-08] MEDS: NICOTINE 21 MG/24 HOURS TOPICAL PATCH TD SCH (09:12)
[2021-03-08] MEDS: LIDOCAINE 5% TOPICAL PATCH TP SCH (09:12)
== END 2021-03-08 10:04 | disposition home or self-care (01) | DRG 773 ==
LOC: YASAS 14:43 → Y6N 20:54
PROVIDERS: ADMIT Allergy & Immunology; ATTEND Allergy & Immunology
PROC: HZ2ZZZZ Detoxification Services for Substance Abuse Treatment (ICD-10-PCS; principal; 2021-03-04)
DX: F10.230 Alcohol dependence with withdrawal, uncomplicated (principal); F13.230 Sedative, hypnotic or anxiolytic dependence with withdrawal, uncomplicated; F11.20 Opioid dependence, uncomplicated; F14.10 Cocaine abuse, uncomplicated; F17.210 Nicotine dependence, cigarettes, uncomplicated; F19.280 Other psychoactive substance dependence with psychoactive substance-induced anxiety disorder; F19.282 Other psychoactive substance dependence with psychoactive substance-induced sleep disorder; F32.9 Major depressive disorder, single episode, unspecified; F90.9 Attention-deficit hyperactivity disorder, unspecified type; B37.0 Candidal stomatitis; Z88.8 Allergy status to other drugs, medicaments and biological substances
CPT/HCPCS: 36415; 80053; 84450; 84460; 85027; 86780; 87389; 93005; 93010; C9803; J0735; U0003; U0005

== ENCOUNTER 2021-06-11 12:08 | Inpatient (IN) | payer OTHER ==
[2021-06-11] MEDS ORDERED: BISMUTH SUBSALICYLATE 524 MG/30 ML PO PRN (15:25)
[2021-06-11] MEDS ORDERED: MAGNESIUM CITRATE 300 ML BOTTLE PO PRN (15:25)
[2021-06-11] MEDS ORDERED: MAG HYDROX/AL HYDROX/SIMETH 30 ML UNIT-DOSE CUP PO PRN (15:25)
[2021-06-11] MEDS ORDERED: IBUPROFEN 400 MG TABLET (FP) PO PRN (15:25)
[2021-06-11] MEDS ORDERED: ACETAMINOPHEN 325 MG TABLET (FP) PO PRN ×2 (15:25)
[2021-06-11] MEDS ORDERED: MENTHOL/PHENOL 1 EACH UD MM PRN (15:25)
[2021-06-11] MEDS ORDERED: MAGNESIUM HYDROX 2400MG/30ML ORAL SUSPENSION 30 ML CUP PO PRN (15:25)
[2021-06-11] MEDS ORDERED: ONDANSETRON *ODT* 4 MG TABLET SL PRN (15:25)
[2021-06-11] MEDS: diazePAM 5 MG TABLET PO SCH ×2 (17:49→22:26)
[2021-06-11] MEDS: MELATONIN 5 MG TABLETS PO SCH (22:26)
[2021-06-11] MEDS: THIAMINE HCL 100 MG TABLET (FP) PO SCH (22:26)
[2021-06-12] MEDS: diazePAM 5 MG TABLET PO SCH ×4 (05:59→22:59)
[2021-06-12] MEDS: methaDONE HCL 40 MG DISPERSABLE TABLET PO SCH (06:00)
[2021-06-12] MEDS: NICOTINE POLACRILEX 2 MG GUM BUC PRN ×5 (06:02→20:10)
[2021-06-12] MEDS: PRENATAL VITAMINS W/ FOLIC ACID TABLET (FP) PO SCH (10:15)
[2021-06-12] MEDS: NICOTINE 21 MG/24 HOURS TOPICAL PATCH TD SCH (10:15)
[2021-06-12] MEDS: diazePAM 5 MG TABLET PO PRN ×3 (12:33→21:08)
[2021-06-12] MEDS: METHOCARBAMOL 500 MG TABLET PO PRN ×2 (15:07→22:56)
[2021-06-12 18:36] LABS: HEMATOCRIT 42.4 % (35.4-49); HEMOGLOBIN 14.6 GM/dL (11.7-16.9); MCH 35.8 pg (25.7-33.7); MCHC 34.5 g/dl (32.0-35.9); MEAN CELL VOLUME 103.8 fl (80-96); MEAN PLT VOLUME 8.3 fl (7.5-11.1); PLATELET COUNT 334 10^3/uL (134-434); RBC 4.08 M/mm3 (4.00-5.60); RDW 14.7 % (11.9-15.9); WHITE BLOOD COUNT 8.5 K/mm3 (4.0-10.0)
[2021-06-12 19:04] LABS: ALBUMIN 3.4 g/dl (3.4-5.0); BLOOD UREA NITROGEN 9.5 mg/dL (7-18)
[2021-06-12 19:07] LABS: CREATININE 0.8 mg/dL (0.55-1.3)
[2021-06-12 19:08] LABS: BILIRUBIN,TOTAL 0.6 mg/dL (0.2-1); TOT PROT 6.7 g/dl (6.4-8.2)
[2021-06-12 19:58] LABS: HIV INTERPRETATION NEGATIVE (NEGATIVE)
[2021-06-12] MEDS: SUVOREXANT 10 MG TABLET PO PRN (22:55)
[2021-06-12] MEDS: THIAMINE HCL 100 MG TABLET (FP) PO SCH (22:56)
[2021-06-12] MEDS: MELATONIN 5 MG TABLETS PO SCH (22:56)
[2021-06-13] MEDS: diazePAM 5 MG TABLET PO PRN ×4 (01:27→21:05)
[2021-06-13] MEDS: NICOTINE POLACRILEX 2 MG GUM BUC PRN ×7 (01:29→23:31)
[2021-06-13] MEDS: diazePAM 5 MG TABLET PO SCH ×3 (06:10→22:23)
[2021-06-13] MEDS: methaDONE HCL 40 MG DISPERSABLE TABLET PO SCH (06:11)
[2021-06-13] MEDS: NICOTINE 21 MG/24 HOURS TOPICAL PATCH TD SCH (10:28)
[2021-06-13] MEDS: METHOCARBAMOL 500 MG TABLET PO PRN ×2 (10:28→18:08)
[2021-06-13] MEDS: PRENATAL VITAMINS W/ FOLIC ACID TABLET (FP) PO SCH (10:29)
[2021-06-13] MEDS: THIAMINE HCL 100 MG TABLET (FP) PO SCH (22:22)
[2021-06-13] MEDS: MELATONIN 5 MG TABLETS PO SCH ×2 (22:23→23:37)
[2021-06-13] MEDS: SUVOREXANT 10 MG TABLET PO PRN (22:26)
[2021-06-14] MEDS: diazePAM 5 MG TABLET PO SCH ×2 (06:38→17:30)
[2021-06-14] MEDS: methaDONE HCL 40 MG DISPERSABLE TABLET PO SCH (06:40)
[2021-06-14] MEDS: METHOCARBAMOL 500 MG TABLET PO PRN ×2 (06:40→17:31)
[2021-06-14] MEDS: NICOTINE POLACRILEX 2 MG GUM BUC PRN ×4 (06:41→22:22)
[2021-06-14] MEDS: diazePAM 5 MG TABLET PO PRN (10:17)
[2021-06-14] MEDS: PRENATAL VITAMINS W/ FOLIC ACID TABLET (FP) PO SCH (10:18)
[2021-06-14] MEDS: NICOTINE 21 MG/24 HOURS TOPICAL PATCH TD SCH (10:20)
[2021-06-14] MEDS: NICOTINE 10 MG CARTRIDGE (INHALER) IH PRN ×3 (12:02→22:21)
[2021-06-14] MEDS: MELATONIN 5 MG TABLETS PO SCH (22:20)
[2021-06-14] MEDS: THIAMINE HCL 100 MG TABLET (FP) PO SCH (22:21)
[2021-06-14] MEDS: SUVOREXANT 10 MG TABLET PO PRN (22:21)
[2021-06-15] MEDS: METHOCARBAMOL 500 MG TABLET PO PRN (05:57)
[2021-06-15] MEDS: methaDONE HCL 40 MG DISPERSABLE TABLET PO SCH (05:57)
[2021-06-15] MEDS ORDERED: diazePAM 5 MG TABLET PO ONE (06:00)
[2021-06-15 08:19] VITALS: BP 116/71; PULSE 64; TEMP 96.9
== END 2021-06-15 07:35 | disposition home or self-care (01) | DRG 773 ==
LOC: YASAS 12:08 → Y3N 17:17
PROVIDERS: ADMIT Allergy & Immunology; ATTEND Allergy & Immunology
PROC: HZ2ZZZZ Detoxification Services for Substance Abuse Treatment (ICD-10-PCS; principal; 2021-06-11)
DX: F10.230 Alcohol dependence with withdrawal, uncomplicated (principal); F13.20 Sedative, hypnotic or anxiolytic dependence, uncomplicated; F11.20 Opioid dependence, uncomplicated; F14.20 Cocaine dependence, uncomplicated; F17.210 Nicotine dependence, cigarettes, uncomplicated; F19.24 Other psychoactive substance dependence with psychoactive substance-induced mood disorder; E87.5 Hyperkalemia; G47.00 Insomnia, unspecified; Z88.8 Allergy status to other drugs, medicaments and biological substances; Z56.0 Unemployment, unspecified; Z59.0 Homelessness
CPT/HCPCS: 36415; 80053; 85027; 86780; 87389; 93005; 93010; C9803; Q0162; U0003; U0005

== ENCOUNTER 2023-01-20 18:01 | Inpatient (IN) | payer OTHER ==
[2023-01-20 19:56] VITALS: BMI 18.5
[2023-01-20] MEDS ORDERED: guaiFENesin 600 MG TABLET.ER (FP) PO PRN (21:36)
[2023-01-20] MEDS ORDERED: POLYETHYLENE GLYCOL (HEALTHYLAX) 3350 17 GM PACKET PO PRN (21:36)
[2023-01-20] MEDS ORDERED: DICYCLOMINE HCL 10 MG CAPSULE PO PRN (21:36)
[2023-01-20] MEDS ORDERED: BENZOCAINE/MENTHOL (CHLORASEPTIC ) LOZENGE MM PRN (21:36)
[2023-01-20] MEDS ORDERED: MAGNESIUM HYDROX 2400MG/30ML ORAL SUSPENSION 30 ML CUP PO PRN (21:36)
[2023-01-20] MEDS ORDERED: IBUPROFEN 400 MG TABLET (FP) PO PRN (21:36)
[2023-01-20] MEDS ORDERED: NALOXONE HCL (KLOXXADO) 8 MG SPRAY NS PRN (21:36)
[2023-01-20] MEDS ORDERED: BISMUTH SUBSALICYLATE 524 MG/30 ML PO PRN (21:36)
[2023-01-20] MEDS ORDERED: NALOXONE HCL 0.4 MG/ML VIAL IM PRN (21:36)
[2023-01-20] MEDS ORDERED: chlordiazePOXIDE HCL 25 MG CAPSULE PO PRN (21:36)
[2023-01-20] MEDS ORDERED: MAG HYDROX/AL HYDROX/SIMETH 30 ML UNIT-DOSE CUP PO PRN (21:36)
[2023-01-20] MEDS ORDERED: ACETAMINOPHEN 325 MG TABLET (FP) PO PRN (21:36)
[2023-01-20] MEDS ORDERED: ONDANSETRON *ODT* 4 MG TABLET SL PRN (21:36)
[2023-01-20] MEDS ORDERED: BENZONATATE 200 MG CAPSULE PO PRN (21:36)
[2023-01-20] MEDS ORDERED: LOPERAMIDE HCL 2 MG CAPSULE PO PRN (21:36)
[2023-01-20] MEDS: MELATONIN 5 MG TABLETS PO SCH (23:05)
[2023-01-20] MEDS: THIAMINE HCL 100 MG TABLET (FP) PO SCH (23:06)
[2023-01-21] MEDS ORDERED: chlordiazePOXIDE HCL 25 MG CAPSULE PO SCH (05:00)
[2023-01-21] MEDS: diazePAM 5 MG TABLET PO SCH ×4 (05:56→22:07)
[2023-01-21] MEDS: NICOTINE POLACRILEX 2 MG GUM BUC PRN ×6 (07:35→22:08)
[2023-01-21] MEDS: NICOTINE 21 MG/24 HOURS TOPICAL PATCH TD SCH (10:02)
[2023-01-21] MEDS: PRENATAL VITAMINS W/ FOLIC ACID TABLET (FP) PO SCH (10:02)
[2023-01-21] MEDS: methaDONE HCL 40 MG DISPERSABLE TABLET PO SCH (10:02)
[2023-01-21] MEDS: IBUPROFEN 600 MG TABLET (FP) PO PRN (10:04)
[2023-01-21 10:31] LABS: HEMATOCRIT 43.7 % (35.4-49); HEMOGLOBIN 14.7 GM/dL (11.7-16.9); MCHC 33.6 g/dl (32.0-35.9); MEAN CELL VOLUME 101.1 fl (80-96); MEAN PLT VOLUME 9.1 fl (7.5-11.1); PLATELET COUNT 216 10^3/uL (134-434); RBC 4.33 M/mm3 (4.00-5.60); RDW 12.3 % (11.9-15.9)
[2023-01-21 10:45] LABS: CALCIUM 9.4 mg/dL (8.5-10.1)
[2023-01-21 10:46] LABS: ALBUMIN 3.3 g/dl (3.4-5.0)
[2023-01-21 10:48] LABS: CREATININE 0.7 mg/dL (0.55-1.3)
[2023-01-21 10:49] LABS: BLOOD UREA NITROGEN 14.7 mg/dL (7-18)
[2023-01-21 10:50] LABS: BILIRUBIN,TOTAL 0.6 mg/dL (0.2-1); TOT PROT 6.7 g/dl (6.4-8.2)
[2023-01-21] MEDS: diazePAM 5 MG TABLET PO PRN ×2 (13:19→19:19)
[2023-01-21] MEDS: THIAMINE HCL 100 MG TABLET (FP) PO SCH (22:05)
[2023-01-21] MEDS: QUEtiapine FUMARATE 50 MG TABLET PO SCH (22:05)
[2023-01-21] MEDS: MELATONIN 5 MG TABLETS PO SCH (22:05)
[2023-01-22] MEDS ORDERED: chlordiazePOXIDE HCL 10 MG CAPSULE PO PRN
[2023-01-22] MEDS ORDERED: chlordiazePOXIDE HCL 25 MG CAPSULE PO SCH (05:00)
[2023-01-22] MEDS: methaDONE HCL 40 MG DISPERSABLE TABLET PO SCH (05:04)
[2023-01-22] MEDS: diazePAM 5 MG TABLET PO SCH ×3 (05:06→22:16)
[2023-01-22] MEDS: NICOTINE POLACRILEX 2 MG GUM BUC PRN ×3 (05:06→16:46)
[2023-01-22] MEDS: diazePAM 5 MG TABLET PO PRN ×2 (09:14→16:41)
[2023-01-22] MEDS: NICOTINE 21 MG/24 HOURS TOPICAL PATCH TD SCH (09:15)
[2023-01-22] MEDS: PRENATAL VITAMINS W/ FOLIC ACID TABLET (FP) PO SCH (09:16)
[2023-01-22 17:31] VITALS: RESP 18
[2023-01-22] MEDS: THIAMINE HCL 100 MG TABLET (FP) PO SCH (22:14)
[2023-01-22] MEDS: MELATONIN 5 MG TABLETS PO SCH (22:14)
[2023-01-22] MEDS: QUEtiapine FUMARATE 50 MG TABLET PO SCH (22:15)
[2023-01-22] MEDS: IBUPROFEN 600 MG TABLET (FP) PO PRN (22:16)
[2023-01-23] MEDS: diazePAM 5 MG TABLET PO PRN ×2 (01:25→10:15)
[2023-01-23] MEDS: NICOTINE POLACRILEX 2 MG GUM BUC PRN ×4 (01:25→14:08)
[2023-01-23] MEDS ORDERED: chlordiazePOXIDE HCL 10 MG CAPSULE PO SCH (05:00)
[2023-01-23] MEDS: methaDONE HCL 40 MG DISPERSABLE TABLET PO SCH (05:03)
[2023-01-23] MEDS ORDERED: diazePAM 5 MG TABLET PO SCH (06:00)
[2023-01-23] MEDS: PRENATAL VITAMINS W/ FOLIC ACID TABLET (FP) PO SCH (10:13)
[2023-01-23] MEDS: NICOTINE 21 MG/24 HOURS TOPICAL PATCH TD SCH (10:14)
[2023-01-23] MEDS: IBUPROFEN 600 MG TABLET (FP) PO PRN (10:17)
[2023-01-23 11:17] LABS: URINE APPEARANCE CLEAR; URINE BILIRUBIN NEGATIVE (NEGATIVE); URINE COLOR YELLOW; URINE GLUCOSE (UA) TRACE (NEGATIVE); URINE KETONE NEGATIVE (NEGATIVE); URINE LEUK ESTERASE NEGATIVE (NEGATIVE); URINE NITRITE NEGATIVE (NEGATIVE); URINE PROTEIN NEGATIVE (NEGATIVE); URINE UROBILINOGEN 0.2 mg/dL (0.2-1.0)
[2023-01-23 13:40] VITALS: BP 149/95; PULSE 95; TEMP 97.8
[2023-01-24] MEDS ORDERED: chlordiazePOXIDE HCL 10 MG CAPSULE PO SCH (05:00)
[2023-01-24] MEDS ORDERED: diazePAM 5 MG TABLET PO ONE (06:00)
[2023-01-25] MEDS ORDERED: chlordiazePOXIDE HCL 10 MG CAPSULE PO ONE (05:00)
== END 2023-01-23 14:58 | disposition home or self-care (01) | DRG 773 ==
LOC: YASAS 18:01 → Y6N 21:06
PROVIDERS: ADMIT Allergy & Immunology; ATTEND Surgery
PROC: HZ2ZZZZ Detoxification Services for Substance Abuse Treatment (ICD-10-PCS; principal; 2023-01-20)
DX: F10.230 Alcohol dependence with withdrawal, uncomplicated (principal); F11.20 Opioid dependence, uncomplicated; F14.20 Cocaine dependence, uncomplicated; F12.20 Cannabis dependence, uncomplicated; F17.210 Nicotine dependence, cigarettes, uncomplicated; F19.24 Other psychoactive substance dependence with psychoactive substance-induced mood disorder; B18.2 Chronic viral hepatitis C; G47.00 Insomnia, unspecified; Z59.01 Sheltered homelessness; Z88.8 Allergy status to other drugs, medicaments and biological substances; Z28.310 Unvaccinated for COVID-19; Z28.21 Immunization not carried out because of patient refusal
CPT/HCPCS: 36415; 80053; 81003; 85027; 86780; C9803-CS; U0003; U0005